=== PATIENT | male | born 1975 | race Caucasian/White ===

== ENCOUNTER 2023-09-04 12:10 | Outpatient (AMB) | payer OTHER, SELFPAY ==
[2023-09-04 12:19] VITALS: BP 132/80; PULSE 83; TEMP 37; O2SAT 98; BMI 28.4
--- NOTE | 2023-09-04 12:19 | AM.OFFWIN_ITS ---
Intake Vital Signs 09/04/23 12:19 Height 5 ft 11 in Weight 203 lb 8 oz BMI 28.4 BP 132/80 Blood Pressure Location Lt brachial Position Sitting Pulse 83 Pulse Source Pulse Oximeter Temp 98.6 F Temp Source Oral Pulse Oximetry (%) 98 Oxygen Delivery Method Room Air Intake Visit Reasons: [employer] body ache, headache, stomach swelling Intake Note: pt is here for body ache, headache, stomach pain with bloating for the past few days Patient Tobacco Use Status: Former Tobacco user Allergies No Known Allergies Allergy (Verified 09/04/23 12:20) Do you need a note to return to daycare/school/sports/work: Yes HPI HPI Comments History of Present Illness Details 48-year-old male presents to [facility] compl aining of myalgias fever paresthesias and he has also had abdominal bloating for the last few weeks. That is unrelated with his flu-like symptoms he states he was taking omeprazole for GERD but has discontinue that medication. He states he has no change in his bowel or bladder habits but just has a feeling of bloating after he eats PFSH Social History Patient Tobacco Use Status: Former Tobacco user Review of Systems Const All systems reviewed & are unremarkable except as noted in HPI and below ENT Reports no additional complaints Card Reports no additional complaints Resp Reports no additional complaints Physical Exam Vital Signs: Last Vital Signs Temp 98.6 F 09/04/23 12:19 Pulse 83 09/04/23 12:19 BP 132/80 09/04/23 12:19 Pulse Ox 98 09/04/23 12:19 Oxygen Delivery Method Room Air 09/04/23 12:19 BMI result Body Mass Index 28.4 HEENT Head: Yes normal to inspection, Yes normocephalic and Yes atraumatic Ears: hearing grossly normal bilaterally, external ears normal, TM normal on the right, EAC's normal and TM abnormal bulging on the left General nose exam: Normal external nose present Face and sinus: Yes normal facial exam Throat: Yes posterior oropharynx normal Resp Effort & Inspection: normal respiratory effort Auscultation: clear to auscultation bilaterally Cardio Palpation: normal PMI Rate: regular rate GI Inspection: Yes normal to inspection Palpation (GI): Soft to palpation Percussion: Yes normal to percussion Auscultation: normal bowel sounds Assessment & Plan Assessment & Plan (1) Otitis media: Code(s): H66.90 - Otitis media, unspecified, unspecified ear Plan: See plan the patient will follow up with his PCP for his abdominal bloating Orders: Orders SARS-CoV2/FLU/RSV Today J11.1 - Influenza due to unidentified influenza virus with other respiratory manifestations Medications: New doxycycline hyclate 100 mg PO BID 14 caps 0RF 7 days Patient Instructions: See plan Coding Level of Care Code Est Pt Level 3 (52835) Diagnoses Otitis media H66.90
== END 2023-09-04 13:16 | disposition home or self-care (01) ==
PROVIDERS: Visit Provider Physician Assistant Medical
DX: H66.90 Otitis media, unspecified, unspecified ear (principal)
CPT/HCPCS: 99213

== ENCOUNTER 2023-09-04 17:09 | Outpatient (REF) | payer OTHER, SELFPAY ==
[2023-09-04 18:01] LABS: Influenza A PCR NEGATIVE (Negative); Influenza B PCR NEGATIVE (Negative); Resp Syncy Virus RNA Qual PCR NEGATIVE (Negative); SARS COV2 PCR INHOUSE NEGATIVE (Negative)
== END 2023-09-04 17:10 | disposition home or self-care (01) ==
LOC: HO.LNP 17:09
PROVIDERS: Visit Provider Physician Assistant Medical
DX: Z11.51 Encounter for screening for human papillomavirus (HPV) (principal); J11.1 Influenza due to unidentified influenza virus with other respiratory manifestations
CPT/HCPCS: 0241U